=== PATIENT | female | born 1975 | race Two or more races ===

== ENCOUNTER 2019-11-29 09:41 | Emergency (ER) | payer BC ==
[~2019-11-29] VITALS: Ht 162.6 cm; Wt 59.9 kg
[~2019-11-29 09:41] MED LIST: HIV MEDICATION
[2019-11-29 10:20] LABS: Urine WBC None Seen /hpf (0 - 5)
[2019-11-29 10:21] LABS: Basophils # (auto) 0 uL; Basophils % (auto) 0.4 % (0.0-2.0); Eosinophils # (auto) 0 uL; Eosinophils % (auto) 0.4 % (0.0-7.0); Hematocrit 40.9 % (36.0-46.0); Hemoglobin 13.4 g/dL (12.2-16.2); Lymphocytes # (auto) 1.1 uL; Lymphocytes % (auto) 10.3 % (10.0-50.0); Mean Corpuscular Hemoglobin 26.7 pg (28.0-32.0); Mean Corpuscular Hgb Conc. 32.8 g/dL (32.0-36.0); Mean Corpuscular Volume 81.6 fL (80.0-100.0); Monocytes # (auto) 0.5 uL; Monocytes % (auto) 4.5 % (0.0-12.0); Neutrophils # (auto) 9.1 uL; Neutrophils % (auto) 84.4 % (37.0-80.0); Platelet Count (auto) 362 10^3/uL (140-450); Red Blood Cells 5.01 10^6/uL (4.0-5.20); Red Cell Distribution Width 14.2 % (11.8-14.3); White Blood Cell 10.8 10^3/uL (4.4-10.8)
[2019-11-29] MEDS ORDERED: SODIUM CHLORIDE 0.9% 1,000 ML IV ONE ×2 (10:29)
[2019-11-29] MEDS ORDERED: ONDANSETRON HCL 4 MG/2 ML VIAL IV ONE (10:30)
[2019-11-29 10:32] LABS: Urine Bacteria NONE SEEN /hpf (None Seen); Urine Blood Negative /uL (Negative); Urine Specific Gravity 1.021 (1.001-1.035)
[2019-11-29 10:32] LABS: Albumin 4.2 g/dL (3.4-5.0); Amylase 91 U/L (25-115); Anion Gap 8 (5-15); Blood Urea Nitrogen 16 mg/dL (7-18); Calcium 9.4 mg/dL (8.5-10.1); Carbon Dioxide 24 mmol/L (21-32); Chloride 104 mmol/L (98-107); Glucose 161 mg/dL (74-106); Lipase 133 U/L (73-393); Potassium 3.9 mmol/L (3.5-5.1); Sodium 136 mmol/L (136-145)
[2019-11-29] MEDS ORDERED: IOHEXOL 300 MG/ML 100ML BOTTLE IJ ONE ×2 (10:34→11:04)
[2019-11-29 10:38] LABS: Alanine Aminotransferase 38 U/L (13-56); Alkaline Phosphatase 54 U/L (45-117); Aspartate Aminotransferase 73 U/L (15-37); BUN/Creatinine Ratio 19.3; Bilirubin, Total 0.4 mg/dL (0.2-1.0); GFR African American 96 mL/min; GFR Non-African American 80 mL/min; Total Protein 8.7 g/dL (6.4-8.2)
[2019-11-29 13:21] VITALS: BP 113/77
== END 2019-11-29 13:22 | disposition home or self-care (01) ==
LOC: ER 09:41
DX: D25.9 Leiomyoma of uterus, unspecified (principal); F41.9 Anxiety disorder, unspecified; R10.11 Right upper quadrant pain; E11.9 Type 2 diabetes mellitus without complications; R11.2 Nausea with vomiting, unspecified
CPT/HCPCS: 36415; 74177; 80053; 81001; 82150; 83690; 84484; 85025; 96361; 96374; 99284; J2405; J7030; Q9967

== ENCOUNTER 2021-11-21 08:19 | Emergency (ER) | payer BC ==
[~2021-11-21] VITALS: Ht 160 cm; Wt 67.1 kg
[2021-11-21 08:52] LABS: Basophils # (auto) 0 10 ^3/uL (0-0.2); Basophils % (auto) 0.4 % (0.0-2.0); Eosinophils # (auto) 0 10 ^3/uL (0-0.8); Eosinophils % (auto) 0.5 % (0.0-7.0); Hemoglobin 13.9 g/dL (12.2-16.2); Lymphocytes # (auto) 2.1 10 ^3/uL (0.4-5.4); Lymphocytes % (auto) 26.4 % (10.0-50.0); Mean Corpuscular Hemoglobin 27.1 pg (28.0-32.0); Mean Corpuscular Volume 82.1 fL (80.0-100.0); Monocytes # (auto) 0.5 10 ^3/uL (0-1.3); Monocytes % (auto) 6.7 % (0.0-12.0); Neutrophils # (auto) 5.3 10 ^3/uL (1.6-8.6); Red Blood Cells 5.12 10^6/uL (4.0-5.20); Red Cell Distribution Width 13.7 % (11.8-14.3)
[2021-11-21 09:09] LABS: Albumin 4.1 g/dL (3.4-5.0); Calcium 8.9 mg/dL (8.5-10.1); Potassium 3.8 mmol/L (3.5-5.1)
[2021-11-21 09:12] LABS: Bilirubin, Total 0.7 mg/dL (0.2-1.0); Total Protein 8.4 g/dL (6.4-8.2)
[2021-11-21 10:06] LABS: Urine WBC None Seen /hpf (0 - 5)
[2021-11-21 10:29] LABS: Urine Bacteria NONE SEEN /hpf (None Seen); Urine Blood Negative /uL (Negative); Urine Specific Gravity 1.025 (1.001-1.035)
[2021-11-21 15:24] VITALS: BP 138/67
== END 2021-11-21 15:35 | disposition home or self-care (01) ==
LOC: ER 08:19
DX: N20.0 Calculus of kidney (principal); E11.65 Type 2 diabetes mellitus with hyperglycemia; Z98.51 Tubal ligation status
CPT/HCPCS: 36415; 74176; 80053; 81001; 85025

== ENCOUNTER 2025-01-24 07:47 | Emergency (ER) | payer SELFPAY ==
[~2025-01-24] VITALS: Ht 162.6 cm; Wt 62.7 kg
[2025-01-24 08:40] VITALS: BP 142/77; PULSE 98; RESP 14; TEMP 97.9; O2SAT 99
--- NOTE | 2025-01-24 09:06 | DVH ---
EXAM: XY L ELBOW 3 VIEW XRAY HISTORY: Fall. R/o fracture COMPARISON: None TECHNIQUE: Three views of the left elbow were performed. FINDINGS: No displaced fracture. No dislocation. Elbow joint effusion. IMPRESSION: 1. No displaced fracture. Elbow joint effusion is present which may suggest occult fracture. CT lef t elbow recommended.
--- NOTE | 2025-01-24 09:57 | DVH ---
CLINICAL INDICATION: 50 years old, Female; r/o fracture.. TECHNIQUE: Noncontrast CT of the left elbow was performed. Sagittal and coronal reformatted images ar e provided. COMPARISON: Radiographs of the left elbow same date. CT Dose: CTDI volume is 7.75 mGy. Dose-length product is 174.11 mGy*cm FINDINGS: There is an acute nondisplaced fracture of the radial head. Radiocapitellar alignment is maintained. Ulnohumeral alignment is preserved. Elbow joint effusion as seen on radiographs same date. Posteri or elbow soft tissue swelling. IMPRESSION: 1. Acute nondisplaced fracture of the radial head. 2. Elbow joint effusion and soft tissue swelling. All CT scans at this medical facility are performed using dose modulation techniques as appropriate t o a performed exam including the following: Automated exposure control was utilized; adjustment of th e MA and/or KV according to patient size; and use of iterative reconstruction technique.
--- NOTE | 2025-01-24 10:06 | ED.PDOC ---
Musculoskeletal HPI Comments 50-year-old female presents for a possible fracture to the left elbow after a mechanical follow up. If panic symptoms occurred this morning at approximately 3-4 hours ago after she tripped on her nephew's bicycle while walking to the restroom. Denies hitting head denies LOC Complains of pain with flexion and pain is currently rated as moderate to severe in his aggravated with ambulation and alleviated at rest Chief Complaint: Upper Extremity Time Seen by MD: 08:06 Primary Care Provider: DR BROWN Reviewed Notes: Nurses Notes, Medications, Allergies Allergies: Coded Allergies: NO KNOWN ALLERGIES (Unverified , 06/06/12) Home Meds Reported Medications [Hiv Medication] No Conflict Check, DAILY 06/06/12 Information Source: Patient Mode of Arrival: Ambulatory Past Medical History PAST MEDICAL HISTORY: DM, HIV Surgical History: Tubal Ligation HOT PATCHER History: No Pertinent HOT PATCHER History Family History Family History: Reviewed,noncontributory to illness Social History Smoker: Non-Smoker Alcohol: Occasionally Drugs: Denies Drug Use Lives In: Home All Other Systems: Reviewed and Negative (Per HPI) Physical Exam General Appearance: No Apparent Distress, Normal HEENT: Head (Head normocephalic atraumatic), Normal ENT Inspection, Pharynx Normal, TMs Normal Neck: Full Range of Motion, Non-Tender, Normal, Normal Inspection Respiratory: Chest Non-Tender, Lungs Clear, No Accessory Muscle Use, No Respiratory Distress, Normal Breath Sounds Cardiovascular: No Murmur, No Gallop, Regular Rate/Rhythm Breast Exam: Deferred Gastrointestinal: No Organomegaly, Non Tender, No Pulsatile Mass, Normal Bowel Sounds, Soft Genitalia: Deferred Pelvic: Deferred Rectal: Deferred Extremities: No calf tenderness, Normal capillary refill, Normal inspection, Normal range of motion, Non-tender, No pedal edema Musculoskeletal : Location: Left Extremity Location: Elbow (No open wounds. Visible deformity to the lateral epicondyle. Pain with flexion-extension. Radial pulses 2+. Distal neuro sensation intact) Apperance: Normal Neurologic: Alert, No Motor Deficits, Normal Affect, No Sensory Deficits Cerebellar Function: Normal Reflexes: Normal Skin: Dry, Normal Color, Warm Lymphatic: No Adenopathy Was a procedure done? Was a procedure done?: No Differential Diagnosis EXT Differential Diagnosis: Fracture, Sprain, Dislocation X-Ray, Labs, Meds, VS Vital Signs Date Time Temp Pulse Resp B/P (MAP) Pulse Ox O2 Delivery O2 Flow Rate FiO2 01/24/25 08:40 98 14 99 Room Air 01/24/25 08:40 97.9 98 14 142/77 (98) 99 97.9 01/24/25 08:07 98 14 142/77 (98) 99 X-Ray, Labs, Meds, VS Comment CT findings show acute fracture. Nondisplaced. Extremity was splinted with a double sugar-tong. Distal neuro sensation intact on re-evaluation. Recommended to follow up PCP for ortho consultation Advised [id number] ibuprofen as needed for pain. 600-800 mg every 6-8 hours with food On reevaluation, patient had symptomatic improvement. Patient is stable for discharge at this time. External notes reviewed. Test results and diagnostic imaging interpreted. All diagnostic findings, discharge care, education and instructions provided Follow-up with PCP in 2 to 3 days Patient verbalized understanding and agreed to treatment plan Vital signs stable, afebrile, no acute distress noted Patient ambulatory with strong steady gait Advised to return precautions for any new or worsening symptoms, return to ER immediately for re-evaluation Patient is aware that the purpose of this visit was for an acute medical emergency requiring emergent stabilization. Chronic conditions, including malignancies have not been ruled out. Patient is instructed to follow up with PCP as directed and discharge instructions for continued care and workup. If unable to arrange follow-up, patient is to return to the emergency department for reassessment. Patient (parent or legal guardian if applicable) was given verbal and written discharge instructions and acknowledges understanding. Time of 1ST Reevaluation: 10:00 Reevaluation 1ST: Improved Patient Education/Counseling: Diagnosis, Treatment Family Education/Counseling: Diagnosis, Treatment Departure 1 Departure Time of Disposition: 10:05 Impression: Primary Impression: Radial head fracture, closed Qualified Codes: S52.125A - Nondisplaced fracture of head of left radius, initial encounter for closed fracture Disposition: 01 HOME / SELF CARE / HOMELESS Condition: Fair Critical Care Note Critical Care Time?: No Stability Stability form required: No Heart Score Heart Score: Heart Score Response (Comments) Value History N/A 0 EKG N/A 0 Age N/A 0 Risk Factors N/A 0 Troponin N/A 0 Total 0 DEANDRE RESENDIZ NP Jan 24, 2025 10:06
== END 2025-01-24 10:23 | disposition home or self-care (01) ==
LOC: ER 07:47
DX: S52.122A Displaced fracture of head of left radius, initial encounter for closed fracture (principal); E11.9 Type 2 diabetes mellitus without complications; Z98.51 Tubal ligation status; W22.8XXA Striking against or struck by other objects, initial encounter; Y93.01 Activity, walking, marching and hiking; Y92.89 Other specified places as the place of occurrence of the external cause; Y99.8 Other external cause status
CPT/HCPCS: 29105; 73080; 73200